=== PATIENT | male | born 1990 | race American Indian/Alaskan Native ===

== ENCOUNTER 2021-03-20 11:36 | Emergency (ER) | payer MEDICARE ==
[2021-03-20] MEDS ORDERED: SODIUM CHLORIDE 0.9% 1000 ML 3,000 ML ONE (11:46)
[2021-03-20] MEDS ORDERED: SODIUM CHLORIDE 0.9% 1000 ML 1,000 ML IV ONE ×4 (11:56→12:41)
--- NOTE | 2021-03-20 12:05 | Emergency Department Report ---
HPI - General Time Seen by Provider: 03/20/21 11:53 - HPI HPI: Room 22 The patient is a 31-year-old male present with a chief complaint of cardiac arrest. Per EMS the patient was walking and then was a witnessed collapse. EMS arrived on scene and states the patient was pulseless and apneic so chest compressions were initiated. An AED was placed on the patient and did not a dvise a shock. EMS states as soon as the patient was intubated they were able to detect pulse. The first time the monitor was placed on the patient is found to be in sinus tachycardia. No medications were given during the arrest. Upon arrival to the ED the patient was found to be hypotensive and tachycardic. ED Past Medical Hx - Past Medical History Additional medical history: Autism - Surgical History Past Surgical History?: No - Family History Family history: other (Unknown) - Social History Smoking Status: Unknown if ever smoked ED Review of Systems ROS: Stated complaint: CARDIAC ARREST Other details as noted in HPI Comment: Unobtainable due to pts medical conditions Physical Exam - Physical Exam Vital Signs: Vital Signs 03/20/21 11:43 Pulse Rate 122 H Blood Pressure 51/25 O2 Sat by Pulse 100 Oximetry Physical Exam: GENERAL: The patient is well-developed well-nourished male lying on stretcher being bagged by EMS via ET tube HEENT: Normocephalic. Atraumatic. Strabismus present. Pupils 4 mm bilaterally NECK: Supple. Trachea midline CHEST/LUNGS: Clear to auscultation. Breath sounds equal bilaterally with baggin g HEART/CARDIOVASCULAR: Regular. There is tachycardia. There is no gallop rub or murmur. ABDOMEN: Abdomen is soft, nontender. Patient has normal bowel sounds. There is no abdominal distention. SKIN: There is no rash. There is no edema. There is no diaphoresis. There is an IO in the right pretibial region NEURO: GCS 3 T MUSCULOSKELETAL: There is no evidence of acute injury. ED Course Vital Signs 03/20/21 11:43 Pulse Rate 122 H Blood Pressure 51/25 O2 Sat by Pulse 100 Oximetry - Reevaluation(s) Reevaluation #1: 03/20/21 13:50 Informed by nursing that patient's QRS has began to widen. Labs revealed hyperkalemia so meds were ordered. Patient's rhythm continued to widen and became sinusoidal devolving into cardiac arrest. ACLS protocols were continued including inline albuterol administration, multiple sodium bicarb and calcium chloride. Patient remained pulseless and there was no return of spontaneous circulation. Further efforts were deemed futile with no objection from staff. Time of 13:46 ED Medical Decision Making - Lab Data Result diagrams: 03/20/21 12:06 03/20/21 12:06 Laboratory Tests 03/20/21 03/20/21 03/20/21 12:06 12:06 12:06 WBC 9.1 RBC 2.81 L Hgb 8.2 L Hct 26.0 L MCV 92 MCH 29 MCHC 32 RDW 15.3 H Plt Count 170 APTT 32.9 D-Dimer 1982.47 H ABG pH POC ABG pCO2 POC ABG pO2 POC ABG HCO3 ABG O2 Saturation POC ABG Base Excess ABG Hemoglobin ABG Oxyhemoglobin ABG Methemoglobin ABG Sodium ABG Potassium ABG Chloride ABG Glucose Carboxyhemoglobin FiO2 % Sodium 144 Potassium 6.6 H* Chloride 109.2 H Carbon Dioxide 6 L* Anion Gap 35 BUN 14 Creatinine 1.5 H Estimated GFR > 60 BUN/Creatinine Ratio 9 Glucose 67 L Lactic Acid Calcium 7.9 L Magnesium 2.10 Total Bilirubin < 0.20 AST 179 H ALT 144 H Alkaline Phosphatase 50 Total Creatine Kinase 414 H Troponin T 0.013 Total Protein 4.6 L Albumin 2.4 L Albumin/Globulin Ratio 1.1 TSH Free T4 Arterial Blood Glucose Arterial Blood Ionized Calcium Urine Color Urine Turbidity Urine pH Ur Specific [place] Urine Protein Urine Glucose (UA) Urine Ketones Urine Blood Urine Nitrite Urine Bilirubin Urine Urobilinogen Ur Leukocyte Esterase Urine WBC (Auto) Urine RBC (Auto) U Epithel Cells (Auto) Hyaline Casts Urine Sperm Urine Opiates Screen Urine Methadone Screen Ur Barbiturates Screen Ur Phencyclidine Scrn Ur Amphetamines Screen U Benzodiazepines Scrn Urine Cocaine Screen U Marijuana (THC) Screen Drugs of Abuse Note Plasma/Serum Alcohol 03/20/21 03/20/21 03/20/21 12:06 12:06 12:06 WBC RBC Hgb Hct MCV MCH MCHC RDW Plt Count APTT D-Dimer ABG pH POC ABG pCO2 POC ABG pO2 POC ABG HCO3 ABG O2 Saturation POC ABG Base Excess ABG Hemoglobin ABG Oxyhemoglobin ABG Methemoglobin ABG Sodium ABG Potassium ABG Chloride ABG Glucose Carboxyhemoglobin FiO2 % Sodium Potassium Chloride Carbon Dioxide Anion Gap BUN Creatinine Estimated GFR BUN/Creatinine Ratio Glucose Lactic Acid 19.30 H* Calcium Magnesium Total Bilirubin AST ALT Alkaline Phosphatase Total Creatine Kinase Troponin T Total Protein Albumin Albumin/Globulin Ratio TSH 2.990 Free T4 0.71 L Arterial Blood Glucose Arterial Blood Ionized Calcium Urine Color Urine Turbidity Urine pH Ur Specific [place] Urine Protein Urine Glucose (UA) Urine Ketones Urine Blood Urine Nitrite Urine Bilirubin Urine Urobilinogen Ur Leukocyte Esterase Urine WBC (Auto) Urine RBC (Auto) U Epithel Cells (Auto) Hyaline Casts Urine Sperm Urine Opiates Screen Urine Methadone Screen Ur Barbiturates Screen Ur Phencyclidine Scrn Ur Amphetamines Screen U Benzodiazepines Scrn Urine Cocaine Screen U Marijuana (THC) Screen Drugs of Abuse Note Plasma/Serum Alcohol < 0.01 03/20/21 03/20/21 03/20/21 12:30 12:32 12:32 WBC RBC Hgb Hct MCV MCH MCHC RDW Plt Count APTT D-Dimer ABG pH 6.912 L POC ABG pCO2 35.5 POC ABG pO2 227.1 H POC ABG HCO3 7.0 ABG O2 Saturation 98.0 POC ABG Base Excess -24.2 ABG Hemoglobin 8.3 L ABG Oxyhemoglobin 96.4 ABG Methemoglobin 0.2 ABG Sodium 142.3 ABG Potassium 7.1 H ABG Chloride 112.0 H ABG Glucose 62 L Carboxyhemoglobin 1.4 FiO2 % 100.0 Sodium Potassium Chloride Carbon Dioxide Anion Gap BUN Creatinine Estimated GFR BUN/Creatinine Ratio Glucose Lactic Acid Calcium Magnesium Total Bilirubin AST ALT Alkaline Phosphatase Total Creatine Kinase Troponin T Total Protein Albumin Albumin/Globulin Ratio TSH Free T4 Arterial Blood Glucose 62 L Arterial Blood Ionized Calcium 4.1 L Urine Color Yellow Urine Turbidity Slightly-cloudy Urine pH 8.0 H Ur Specific [place] 1.006 Urine Protein <15 mg/dl Urine Glucose (UA) Neg Urine Ketones Neg Urine Blood Sm Urine Nitrite Neg Urine Bilirubin Neg Urine Urobilinogen < 2.0 Ur Leukocyte Esterase Neg Urine WBC (Auto) 17.0 H Urine RBC (Auto) 21.0 U Epithel Cells (Auto) 2.0 Hyaline Casts 1 Urine Sperm 3+ Urine Opiates Screen Negative Urine Methadone Screen Negative Ur Barbiturates Screen Negative Ur Phencyclidine Scrn Negative Ur Amphetamines Screen Negative U Benzodiazepines Scrn Negative Urine Cocaine Screen Negative U Marijuana (THC) Screen Negative Drugs of Abuse Note Disclamer Plasma/Serum Alcohol - EKG Data -: EKG Interpreted by Me EKG shows normal: sinus rhythm Rate: tachycardia (123 bpm) - EKG Data When compared to previous EKG there are: previous EKG unavailable Interpretation: nonspecific ST-T wave sandra - Radiology Data Radiology results: image reviewed (Chest x-ray, 1 view abdominal x-ray) interpreted by me: Chest x-ray-ET tube in place. No pneumothorax. Abdominal x-ray 1 view-NG tube in place [facility] [address] [place] [address] XRay Report Signed Patient: JUANITA AMEZCUA I MR#: [id number] [birth year] : 1990 Acct:[id number] Age/Sex: 31 / M ADM Date: 03/20/21 Loc: ED Attending Dr: Ordering Physician: BRADY YUEN MD Date of Service: 03/20/21 Procedure(s): XR chest 1V ap Accession Number(s): [id number] cc: BRADY YUEN MD Fluoro Time In Minutes: XR chest 1V ap INDICATION / CLINICAL INFORMATION: Pulseless and apneic in field. Status post intuba. COMPARISON: None available. FINDINGS: SUPPORT DEVICES: Endotracheal tube is low lying, terminating less than 1 cm above the magy. Nasogastric tube side port projects at the GE junction. HEART /PULMONARY VASCULATURE: No significant abnormality. LUNGS / PLEURA: There are low lung volumes with mild patchy airspace opacity within the medial right lung base, may reflect atelectasis or infiltrate. Left lung is clear of consolidation. No sizable pleural effusion. No pneumothorax. ADDITIONAL FINDINGS: No significant additional findings. IMPRESSION: 1. Endotracheal tube is low-lying. Recommend retraction by approximately 3 cm. 2. Low lung volumes with patchy airspace opacity in the medial right lung base, may reflect atelectasis or infiltrate. Signer Name: Maty Monk MD Signed: 03/20/2021 12:46 PM Workstation Name: [id number] Transcribed By: WENDI Dictated By: MATY MONK MD Electronically Authenticated By: MATY MONK MD Signed Date/Time: 03/20/21 1246 DD/ 1244 TD/TT: Print [facility] [address] [place] [address] XRay Report Signed Patient: JUANITA AMEZCUA I MR#: [id number] 95 : 1990 Acct:[id number] Age/Sex: 31 / M ADM Date: 03/20/21 Loc: ED Attending Dr: Ordering Physician: BRADY YUEN MD Date of Service: 03/20/21 Procedure(s): XR abdomen 1V ap Accession Number(s): [id number] cc: BRADY YUEN MD Fluoro Time In Minutes: XR abdomen 1V ap INDICATION / CLINICAL INFORMATION: Status post NG tube placement COMPARISON: None available. FINDINGS/IMPRESSION: Nasogastric tube tip terminates over the stomach with side port projecting at the GE junction. Recommend slight advancement for optimal placement. Large colonic stool burden. No free air. Signer Name: Maty Monk MD Signed: 03/20/2021 12:44 PM Workstation Name: [id number] Transcribed By: JS Dictated By: MATY MONK MD Electronically Authenticated By: MATY MONK MD Signed Date/Time: 03/20/21 1244 DD/ 124 TD/TT: Print Cancel - Differential Diagnosis Sepsis, symptomatic anemia, dysrhythmia, PE, ACS, ICH, coronavirus Critical care attestation.: If time is entered above; I have spent that time in minutes in the direct care of this critically ill patient, excluding procedure time. ED Disposition Clinical Impression: Cardiac arrest, Hyperkalemia Disposition: DC-20 Is pt being admited?: No Does the pt Need Aspirin: No Condition: Poor Referrals: PRIMARY CARE, [Primary Care Provider] - 3-5 Days Time of Disposition: 13:55 (Patient )
[2021-03-20 12:35] LABS: Hemoglobin 8.2 gm/dl (11.8-15.2); Mean Corpuscular HGB Conc 32 % (32-34); Mean Corpuscular Volume 92 fl (84-94); Platelet Count 170 K/mm3 (140-440); Red Blood Count 2.81 M/mm3 (3.65-5.03); Red Cell Distribution Width 15.3 % (13.2-15.2)
[2021-03-20] MEDS ORDERED: TETANUS,DIPH,PERTUSS(ACELL) VACCINE 0.5 ML SYRINGE IM ONE (12:35)
[2021-03-20 12:47] LABS: Partial Thromboplastin Time 32.9 Sec. (24.2-36.6)
--- NOTE | 2021-03-20 12:49 | XRay Report ---
XR abdomen 1V ap INDICATION / CLINICAL INFORMATION: Status post NG tube placement COMPARISON: None available. FINDINGS/IMPRESSION: Nasogastric tube tip terminates over the stomach with side port projecting at the GE junction. Recomm end slight advancement for optimal placement. Large colonic stool burden. No free air. Signer Name: Brad Reis MD Signed: 03/20/2021 12:44 PM Workstation Name: [id number]
[2021-03-20 12:50] LABS: Alanine Aminotransferase 144 units/L (7-56); Albumin 2.4 g/dL (3.9-5); BUN/Creatinine Ratio 9; Blood Urea Nitrogen 14 mg/dL (9-20); Calcium 7.9 mg/dL (8.4-10.2); Hemolysis Index 5
--- NOTE | 2021-03-20 12:50 | XRay Report ---
XR chest 1V ap INDICATION / CLINICAL INFORMATION: Pulseless and apneic in field. Status post intuba. COMPARISON: None available. FINDINGS: SUPPORT DEVICES: Endotracheal tube is low lying, terminating less than 1 cm above the magy. Nasogas tric tube side port projects at the GE junction. HEART /PULMONARY VASCULATURE: No significant abnormality. LUNGS / PLEURA: There are low lung volumes with mild patchy airspace opacity within the medial right lung base, may reflect atelectasis or infiltrate. Left lung is clear of consolidation. No sizable ple ural effusion. No pneumothorax. ADDITIONAL FINDINGS: No significant additional findings. IMPRESSION: 1. Endotracheal tube is low-lying. Recommend retraction by approximately 3 cm. 2. Low lung volumes with patchy airspace opacity in the medial right lung base, may reflect atelectas is or infiltrate. Signer Name: Brad Reis MD Signed: 03/20/2021 12:46 PM Workstation Name: [id number]
[2021-03-20] MEDS ORDERED: SODIUM BICARB 8.4% 50 MEQ/50 ML SYRINGE IV ONE (12:52)
[2021-03-20] MEDS ORDERED: DEXTROSE 50% IN WATER (25GM) 50 ML SYRINGE IV ONE ×2 (12:56→13:09)
[2021-03-20 12:58] LABS: Amphetamine Screen,Urine Negative; Benzodiazepines Screen,Urine Negative; Cannabinoid Screen,Urine Negative; Cocaine Screen,Urine Negative; Methadone Screen,Urine Negative; Opiate Screen,Urine Negative
[2021-03-20] MEDS ORDERED: NORepinephrine/NS 4 MG-250 ML 4 MG/250 ML BAG IV SCH (13:00)
[2021-03-20 13:01] LABS: Free T4 (Free Thyroxine) 0.71 ng/dL (0.76-1.46)
[2021-03-20 13:05] LABS: Bilirubin,Urine NEG (Negative); Blood,Urine SM (Negative); Color,Urine Yellow (Yellow); Hyaline Casts,Urine 1 /LPF; Protein,Urine <15 mg/dL mg/dL (Negative); Sperm,Urine 3+ /HPF (NP); Urobilinogen,Urine < 2.0 mg/dL (<2.0)
[2021-03-20] MEDS ORDERED: INSULIN REGULAR, HUMAN 100 UNITS/1 ML IV ONE (13:09)
[2021-03-20] MEDS ORDERED: SODIUM POLYSTYRENE 15 GM/60 ML ORAL LIQD PO ONE (13:09)
[2021-03-20] MEDS ORDERED: ALBUTEROL 2.5 MG/3 ML NEBU IH ONE (13:10)
[2021-03-20] MEDS ORDERED: CALCIUM CHLORIDE 1,000 MG/10 ML SYRINGE IV ONE (13:18)
[2021-03-20] MEDS ORDERED: CALCIUM CHLORIDE 1,000 MG in SODIUM CHLORIDE 0.9% 100 ML IV ONE (14:00)
[2021-03-20] MEDS ORDERED: BACITRACIN ZINC OINT 28.4 GM TP SCH (14:00)
[2021-03-20 15:07] LABS: Band Neutrophils # (Manual) 0.6 K/mm3; Myelocytes # (Manual) 0.3 K/mm3; Platelet Estimate Consistent w Auto; RBC Morphology Normal; Total Cells Counted 100
[2021-03-20 15:59] VITALS: BP 91/37
--- NOTE | 2021-03-21 10:09 | Electrocardiograph Report ---
[facility] Test Date: 2021-03-20 Test Time: 11:45:33 Pat Name: JUANITA AMEZCUA Department: Room: Gender: M Patient Access: DEPARTMENT SECRETARY : 1990 Requested By: BRADY YUEN Order Number: [id number] [place] MD: Ari Trevino Measurements Intervals [place] Rate: 123 P: 1 NV: 152 QRS: -9 QRSD: 104 T: 64 QT: 320 QTc: 458 Interpretive Statements Sinus tachycardia Borderline ST depression, lateral leads nonspecific st-t No previous ECG available for comparison Electronically Signed On 03-21-2021 10:08:47 EDT by Ari Trevino
== END 2021-03-20 19:02 ==
LOC: ED 11:36
DX: I46.9 Cardiac arrest, cause unspecified (principal); E87.5 Hyperkalemia; Z20.822 Contact with and (suspected) exposure to COVID-19
CPT/HCPCS: 36415; 71045; 74018; 80053; 80307; 81001; 82140; 82550; 82805; 83735; 84439; 84443; 84484; 85007; 85025; 85379; 85730; 87040; 87070; 87086; 87205; 90471; 90715; 92950; 93005; 94640; 96361; 96374; 96375; 99291; J7030; U0003; 80320; 94002; 96376; 99285; G0480; J1815